=== PATIENT | male | born 1960 | race Two or more races ===

== ENCOUNTER 2019-08-21 06:12 | Emergency (ER) | payer BC ==
[2019-08-21 06:16] VITALS: BMI 31.3
[2019-08-21] MEDS ORDERED: ACETAMINOPHEN 1000 MG/100 ML VIAL (NON FORMULARY) IVPB ONE (07:47)
[2019-08-21] MEDS ORDERED: morphine CARPU-JECT 4 MG/1 ML DISP.SYRIN IVPUSH ONE (07:50)
--- NOTE | 2019-08-21 07:55 | PDOC ---
History of Present Illness - General Chief Complaint: Back Pain Stated Complaint: LOW BACK PAIN Time Seen by Provider: 08/21/19 07:36 - History of Present Illness Initial Comments: 08/21/19 07:51 59 M with h/o DM, HTN presenting to ED with lower back pain that started acutely last night. Pt states he was at rest when it began. Denies any falls/ trauma. Did not bend over or lift anything heavy. States that it is localized to his R lower back, non-radiating. Denies leg weakness/numbness. No incontinence or saddle anesthesia. Denies any h/o similar pain. Denies CP/SOB. Past History - Past Medical History Allergies/Adverse Reactions: Allergies Allergy/AdvReac Type Severity Reaction Status Date / Time No Known Allergies Allergy Verified 08/21/19 06:16 Home Medications: Ambulatory Orders Metoprolol Tartrate [Lopressor -] 25 mg PO DAILY 08/21/19 Rosuvastatin [Crestor -] 10 mg PO DAILY 08/21/19 COPD: No - Immunization History Immunization Up to Date: Yes - Psycho Social/Smoking Cessation Hx Smoking History: Unknown if ever smoked Have you smoked in the past 12 months: No Information on smoking cessation initiated: No Hx Alcohol Use: No Drug/Substance Use Hx: No Review of Systems - Review of Systems Comments:: 08/21/19 07:52 GENERAL/CONSTITUTIONAL: No fever or chills. No weakness. HEAD, EYES, EARS, NOSE AND THROAT: No change in vision. No ear pain or discharge. No sore throat. CARDIOVASCULAR: No chest pain, no shortness of breath, no loss of consciousness RESPIRATORY: No cough, wheezing, or hemoptysis. GASTROINTESTINAL: No nausea, vomiting, diarrhea or constipation. GENITOURINARY: No dysuria, frequency, or change in urination. MUSCULOSKELETAL: + back pain, No joint or muscle swelling or pain. No neck pain. SKIN: No rash NEUROLOGIC: No vertigo, no change in strength/sensation. ENDOCRINE: No increased thirst. No abnormal weight change. HEMATOLOGIC/LYMPHATIC: No anemia, easy bleeding, or history of blood clots. ALLERGIC/IMMUNOLOGIC: No hives or skin allergy. *Physical Exam - Vital Signs Last Vital Signs Temp Pulse Resp BP Pulse Ox 98.9 F 56 L 20 174/82 H 99 08/21/19 06:14 08/21/19 06:14 08/21/19 06:14 08/21/19 06:14 08/21/19 06:14 - Physical Exam 08/21/19 07:53 GENERAL: Awake, alert, and fully oriented, in no acute distress. HEAD: No signs of trauma EYES: PERRLA, EOMI, sclera anicteric, conjunctiva clear ENT: Auricles normal inspection, hearing grossly normal, nares patent, oropharynx clear without exudates. Moist mucosa NECK: Nontender, no stepoffs, Normal ROM, supple, no lymphadenopathy, JVD, or masses LUNGS: Breath sounds equal, clear to auscultation bilaterally. No wheezes, and no crackles HEART: Regular rate and rhythm, normal S1 and S2, no murmurs, rubs or gallops ABDOMEN: Soft, nontender, normoactive bowel sounds. No guarding, no rebound. No masses EXTREMITIES: Normal range of motion, no edema. No clubbing or cyanosis. No cords, erythema, or tenderness NEUROLOGICAL: Cranial nerves II through XII intact. 5/5 strength and sensation in all extremities, Normal speech, normal gait, normal cerebellar function SKIN: Warm, Dry, normal turgor, no rashes or lesions noted. BACK: + R paraspinal TTP, + straight leg raise ED Treatment Course - LABORATORY CBC & Chemistry Diagram: 08/21/19 08:05 08/21/19 08:05 - RADIOLOGY Radiology Studies Ordered: Category Date Time Status ABDOMEN & PELVIS CT WITH CONTR [CT] Stat CT Scan 08/21/19 07:49 Ordered CHEST CTA [CT] Stat CT Scan 08/21/19 07:[address] W/O CONTRAST [CT] Stat CT Scan 08/21/19 07:49 Ordered Medical Decision Making - Medical Decision Making 08/21/19 07:53 59 M with sudden onset atraumatic lower back pain. Suspect sciatic nerve vs radiculopathy. Will r/o aortic dissection vs renal colic as well. - Labs, UA - CTA C/A/P - Pain control 08/21/19 10:[address] shows L4-L5 disc bulge 08/21/19 11:03 Pt reassessed - pain now well controlled Pt ambulatory in ED with no difficulty Will DC with ortho f/u Pt is well appearing, with normal vitals. Clinically stable for DC at this time. I discussed the physical exam findings, ancillary test results and final diagnoses with the patient. I answered all of the patient's questions. The patient was satisfied with the care received and felt comfortable with the discharge plan and treatment plan. The patient agrees to follow up with the primary care physician within 24-72 hours. Discharge - Discharge Information Problems reviewed: Yes Clinical Impression/Diagnosis: L4-L5 disc bulge Disposition: HOME - Follow up/Referral Referrals: Ramakrishna De La Garza MD [Primary Care Provider] - Breezy Hendrickson MD [Staff Physician] - Juanjo Stringer MD [Staff Physician] - - Patient Discharge Instructions Patient Printed Discharge Instructions: DI for Low Back Pain Additional Instructions: Your CT scan today showed that you have bulging discs in your lower back. This is likely the cause of your pain. Follow up with an orthopedic surgeon for further evaluation and treatment. Call the numbers provided to make an appointment. If you experience worsening pain, weakness or numbness in either leg, difficulty controlling your bowel or bladder, or any other concerning symptoms, return to the ER immediately. No ER visit is complete without primary care follow up. Follow up with your primary doctor within 1 week to discuss your evaluation today. - Post Discharge Activity
[2019-08-21] MEDS ORDERED: morphine SULFATE 4 MG/ML VIAL ONE (08:08)
[2019-08-21] MEDS ORDERED: ACETAMINOPHEN INJECTION 100 ML IVPB ONE (08:08)
[2019-08-21 08:33] LABS: BASO % 0.7 % (0-2.0); EOS % 0.1 % (0-4.5); HEMATOCRIT 38.3 % (35.4-49); LYMPH % 27.9 % (8-40); MCH 30.9 pg (25.7-33.7); MCHC 33.9 g/dl (32.0-35.9); MEAN CELL VOLUME 91.1 fl (80-96); MEAN PLT VOLUME 9.7 fl (7.5-11.1); NEUT % 61.3 % (42.8-82.8); PLATELET COUNT 195 K/MM3 (134-434); RDW 13.1 % (11.9-15.9); WHITE BLOOD COUNT 8.4 K/mm3 (4.0-10.0)
[2019-08-21 08:53] LABS: ALBUMIN 3.6 g/dl (3.4-5.0); BILIRUBIN,TOTAL 0.4 mg/dL (0.2-1); BLOOD UREA NITROGEN 36.4 mg/dL (7-18); CREATININE 1.5 mg/dL (0.55-1.3); POTASSIUM 4.8 mmol/L (3.5-5.1); TOT PROT 7.5 g/dl (6.4-8.2)
--- NOTE | 2019-08-21 10:11 | EKG ---
Test Reason : Blood Pressure : / mmHG Vent. Rate : 054 BPM Atrial Rate : 054 BPM P-R Int : 172 ms QRS Dur : 082 ms QT Int : 442 ms P-R-T Axes : 041 020 048 degrees QTc Int : 419 ms SINUS BRADYCARDIA OTHERWISE NORMAL ECG NO PREVIOUS ECGS AVAILABLE Confirmed by JUSTO ELIZABETH MD ([id number]) on 08/21/2019 10:11:12 AM Referred By: Confirmed By:JUSTO ELIZABETH MD
[2019-08-21 11:15] VITALS: BP 125/68; PULSE 73; TEMP 98
== END 2019-08-21 11:22 | disposition home or self-care (01) ==
LOC: JER 06:12
PROC: 3E033NZ Introduction of Analgesics, Hypnotics, Sedatives into Peripheral Vein, Percutaneous Approach (ICD-10-PCS; principal; 2019-08-21)
DX: M51.86 Other intervertebral disc disorders, lumbar region (principal); E11.9 Type 2 diabetes mellitus without complications; I10 Essential (primary) hypertension
CPT/HCPCS: 36415; 71275-TC; 72131-TC; 74177-TC; 80053; 82550; 82553; 84484; 85025; 93005; 93010; 99283-25; J0131; Q9967

== ENCOUNTER 2019-09-02 13:54 | Emergency (ER) | payer BC ==
[2019-09-02 14:12] VITALS: TEMP 98.4; BMI 34.7
[2019-09-02] MEDS ORDERED: MECLIZINE HCL 25 MG TABLET (FP) PO ONE (14:18)
[2019-09-02] MEDS ORDERED: LACTATED RINGERS SOLUTION 1000 ML INFUS.BAG IV ONE (14:18)
--- NOTE | 2019-09-02 14:20 | PDOC ---
History of Present Illness - General Chief Complaint: Weakness Stated Complaint: WEAKNESS Time Seen by Provider: 09/02/19 13:58 History Source: Patient, Old Records Exam Limitations: No Limitations - History of Present Illness Initial Comments: HPI: 59 y/o male presenting to [facility] ER via EMS complaining of one hour of dizziness and numbness to the left side of his body. Symptoms started while he was smoking a cigarette and watching television. Reports a sensation of room spinning, but is unable to tell if the sensation changes with eye closure; worse when turning head to the left side. Also reported pain to right lateral side of his neck and a generalized head, which started last night - not maximum at onset. Denies visual disturbance, chest pain, shortness of breath, or abdominal pain. Denies h/o similar. Pt took two ASA prior to calling 911. ALS crew evaluated the pt on scene, then transferred care to [facility] crew for transport. BGL was reportedly 97. Pt follows with Dr. Coreas. Underwent two diagnostic PCI; one in 2002 at [facility] and one in 2011 at [place]. Both were reportedly normal. Social Hx: - Daily tobacco user - EtOH: Denies - Street Drugs: Denies Family Hx: - Brother and father suffered [place] under age 65 Medical Hx: - HTN - HLD - DM managed with diet - S/p R corneal transplant - Insomnia managed w/ Ambien, no recent change in dose Review of Systems: In addition to that documented in the HPI above, the additional ROS was obtained : Constitutional- Denies fevers or chills Head- Denies vision changes ENMT- Denies sore throat CV- Denies chest pain Resp- Denies SOB GI- Denies vomiting or diarrhea - Denies painful urination MSK- Denies recent trauma Skin- Denies new rashes Neuro- Denies weakness in arms and legs Endocrine- Denies polyuria Heme- Denies bleeding or bruising Physical Examination: Vital signs and nursing notes reviewed. Constitutional- Well-developed, well-nourished adult male in no acute distress or obvious discomfort. Found semi-fowlers on hospital bed. Answered all questions appropriately and completely. Head- Normocephalic. No obvious external signs of trauma. Eyes- L pupil 3mm and ERRL. 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 EOMI. No vertical or horizontal nystagmus. Sclerae white. Conjunctiva moist and not injected. Ears- R and L external auditory canals and tympanic membranes pearly oropeza. Hearing grossly intact. Nose- No nasal discharge. Throat- Oral cavity and pharynx normal. No inflammation, swelling, exudate, or lesions. Teeth and gingiva in good general condition. Neck- Supple, trachea is midline. No c-spine tenderness. Cardiovascular / Chest- Regular rate and regular rhythm. No murmur, rubs, clicks , or gallops. Peripheral pulses- radial pulses full. Respiratory- Breathing unlabored. Equal chest rise and fall. Clear to auscultation bilaterally. No stridor, no wheezing, no rhonchi. Gastrointestinal- abdomen is soft, non-tender, non-distended. Neuro- Alert and oriented x4. Moving all four extremities spontaneously. No facial asymmetry. No slurred speech. Uvula midline. No tongue deviation. No upper or lower extremity drift. Sensation to all four extremities intact, but pt reports decreased sensation to left side of face compared to right. Proximal and distal strength 5/5. 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 Plantar flexion and dorsiflexion 5/5.. Skin- Warm, dry, and intact. Psych- Affect- appropriate. Mood- normal. Speech was non-labored, non- pressured. MDM: 59 y/o male presenting with dizziness, left facial numbness, and parentheses to left arm and left leg. Afebrile. Vitals unremarkable for hypotension or tachycardia. Physical exam as described above. No focal neurologic deficits. Unclear etiology of symptoms. Will obtain Head CT, cardiac workup, and basic labs. Ordered Meclizine and IVFB for symptom relief. Ordered 162 of ASA to complete 324 ASA with his home administration. HCT unremarkable for acute pathology. Lab work unremarkable for significant derangement. Will order rapid MRI of brain to further evaluate for CVA given pt s personal and familial risk factors. Pt declined to stay for MRI. Spent >10 minutes over two periods discussing the risks and potential complications of leaving without the MRI, including but not limited to the worsening of symptoms, permanent disability, or . Pts daughter was present for these discussions. Both pt and daughter appeared alert and oriented with intact insight. Pt stated he would follow up with his primary care doctor. Encouraged the pt to do so in the next 24 hours. Provided copies of todays results. Tex Hyman M.D., PGY2 Emergency Medicine Resident NIH Stroke Scale - Last Known Well Date/Time & Onset Date Last Known Well: 09/02/19 Time Last Known Well: 13:30 - Initial Evaluation Level of consciousness: Alert Ask patient the month and their age: Answers both correctly Ask patient to open & close eyes; make fist and let go: Obeys both correctly Best gaze (horizontal eye movement): Normal Visual field testing: No visual field loss Facial paresis (Show teeth/raise eyebrows/close eyes tight): Normal symmetrical movement Motor Function: Left Arm: Normal Motor Function: Right Arm: Normal (extends arm 90 (or 45) degrees for 10 seconds without drift Motor Function: Left Leg: Normal (extends leg 30 degrees for 5 seconds without drift) Motor Function: Right Leg: Normal (extends leg 30 degrees for 5 seconds without drift) Limb Ataxia: No ataxia Sensory(Use pinprick test arms,legs,trunk,face/side to side): Normal Best language (Describe picture, name items, read sentences): No Aphasia Dysarthria (read several words): Normal articulation Extinction and Inattention: No abnormality - Total Score NIH Stroke Scale Score: 0 Past History - Past Medical History Allergies/Adverse Reactions: Allergies Allergy/AdvReac Type Severity Reaction Status Date / Time No Known Allergies Allergy Verified 09/02/19 14:00 Home Medications: Ambulatory Orders Lidocaine 5% Patch [Lidoderm -] 1 patch TP DAILY #7 patch 08/21/19 Metoprolol Tartrate [Lopressor -] 25 mg PO DAILY 08/21/19 Oxycodone HCl/Acetaminophen [Percocet 5-325 mg Tablet] 1 tab PO Q6H PRN #12 tablet MDD 4 tabs 08/21/19 Rosuvastatin [Crestor -] 10 mg PO DAILY 08/21/19 Lisinopril/Hydrochlorothiazide [Lisinopril-Hctz 20-25 mg Tab] 1 each PO DAILY Sertraline HCl [Zoloft] 100 mg PO ASDIR 09/02/19 Zolpidem Tartrate [Ambien] 10 mg PO HS 09/02/19 COPD: No - Immunization History Immunization Up to Date: Yes - Psycho Social/Smoking Cessation Hx Smoking History: Unknown if ever smoked Have you smoked in the past 12 months: No Hx Alcohol Use: No Drug/Substance Use Hx: No *Physical Exam - Vital Signs Last Vital Signs Temp Pulse Resp BP Pulse Ox 98.4 F 79 18 147/92 100 09/02/19 14:00 09/02/19 14:00 09/02/19 14:00 09/02/19 14:00 09/02/19 14:00 Vital Signs - Vital Signs #1 Time: 14:19 Blood Pressure: 134/88 BP Location: Right Arm Blood Pressure Position: Sitting Pulse Rate: 75 Respiratory Rate: 18 O2 Sat by Pulse Oximetry (%): 98 Oxygen Delivery Method: Room Air ED Treatment Course - LABORATORY CBC & Chemistry Diagram: 09/02/19 14:21 09/02/19 14:21 - ADDITIONAL ORDERS Additional order review: Laboratory Results 09/02/19 14:14 POC Glucometer 88 09/02/19 14:14 POC Glucometer 88 Discharge - Discharge Information Problems reviewed: Yes Clinical Impression/Diagnosis: Dizziness, Numbness and tingling of left arm and leg, Numbness and tingling of left side of face Condition: Unchanged/Unknown Disposition: AGAINST MEDICAL ADVICE - Admission No - Follow up/Referral Referrals: Ramakrishna De La Garza MD [Primary Care Provider] - - Patient Discharge Instructions Patient Printed Discharge Instructions: DI for Numbness/tingling, DI for Dizziness-Nonvertigo Additional Instructions: You were seen today for sudden onset of left sided body numbness and dizziness. Your initial blood work and CT scan were normal, but your person and familial medical history places you at risk of an ischemic stroke. A brain MRI was ordered to further evaluate for a stroke, but you declined to have this test performed. This decision was against medical advice. The risks and benefits of leaving this hospital before completing your medical workup were discussed. All of your results are attached to this packet. Please follow up with your regular doctor in the next 24 hours. Take this packet with you so the results can be reviewed by your doctor. Go to the nearest emergency department for new or worsening symptoms. Print Language: K[place]IL[place] - Post Discharge Activity
[2019-09-02] MEDS ORDERED: ASPIRIN 81 MG CHEWABLE TABLETS PO ONE (14:21)
[2019-09-02] MEDS ORDERED: MECLIZINE HCL 25 MG TABLET (FP) ONE (14:33)
[2019-09-02] MEDS ORDERED: ASPIRIN 81 MG CHEWABLE TABLETS ONE (14:33)
[2019-09-02 14:35] LABS: BASO % 0.6 % (0-2.0); EOS % 0.1 % (0-4.5); HEMATOCRIT 38.7 % (35.4-49); HEMOGLOBIN 13.1 GM/dL (11.7-16.9); MCH 30.8 pg (25.7-33.7); MCHC 33.8 g/dl (32.0-35.9); MEAN CELL VOLUME 90.9 fl (80-96); MEAN PLT VOLUME 10.2 fl (7.5-11.1); MONO % 9.1 % (3.8-10.2); NEUT % 56.2 % (42.8-82.8); PLATELET COUNT 209 K/MM3 (134-434); RBC 4.26 M/mm3 (4.00-5.60); RDW 13.3 % (11.9-15.9); WHITE BLOOD COUNT 8.5 K/mm3 (4.0-10.0)
--- NOTE | 2019-09-02 14:44 | PDOC ---
Attending Attestation - Resident Resident Name: Tex Hyman - ED Attending Attestation I have performed the following: I have examined & evaluated the patient, The case was reviewed & discussed with the resident, I agree w/resident's findings & plan - HPI HPI: 09/02/19 14:42 59 y/o male with h/o DM, HTN, CAD (nondiagnostic catheterizations), presenting to [facility] ER via EMS complaining of one hour of dizziness and numbness to the left side of his body. Symptoms started while he was smoking a cigarette and watching television. Reports a sensation of room spinning, but is unable to tell if the sensation changes with eye closure; worse when turning head to the left side. Also reported pain to right lateral side of his neck and a generalized head, which started last night - not maximum at onset. Denies visual disturbance, chest pain, shortness of breath, or abdominal pain. Denies h /o similar. Pt took two ASA prior to calling 911. no trauma. also with neck pain, but no limitations with movement or trauma. BGL was reportedly 97 via EMS. Pt follows with Dr. Coreas. Underwent two diagnostic PCI; one in 2002 at [facility] and one in 2011 at [place]. Both were reportedly normal. 09/02/19 15:02 09/02/19 15:51 - Physicial Exam PE: 09/02/19 14:43 Agree with the resident's HPI and PE as documented in the electronic medical record. NAD, well appearing, EOMI, PERRL, nl conjunctiva, anicteric; neck supple. lungs clear, RRR, abdomen soft nontender. no rebound, guarding. Back nontender. SKAGGS x4, no focal neuro deficits. No peripheral edema. normal color for ethnicity , WWP. Alert, oriented to person time and place. No carotid bruit, CN II-XII grossly intact. Strength prox and distally 5/5 throughout. Sensation grossly intact to light touch. SKAGGS x4. No cerebellar signs, no dysmetria, bilateral finger to nose and heel to lara equal and symmetric. Speech clear. 09/02/19 15:03 - Medical Decision Making 09/02/19 14:43 Vital Signs Temp Pulse Resp BP Pulse Ox 98.4 F 75 18 134/88 98 09/02/19 14:00 09/02/19 14:20 09/02/19 14:20 09/02/19 14:20 09/02/19 14:20 ddx vertigo, peripheral vs central. cerumen impaction, CVA, dissection, aneurysm , ACS, arrhythmia NIHSS zero, no focal deficits. GCS 15, speech clear, no cerebellar signs. 09/02/19 16:12 Laboratory results are within normal limits, troponin is negative x1 unlikely be cardiac/ACS. CT head to evaluate for head bleed/intracranial abnormality given sensory symptoms isolated to the left side. MRI hyperacute series will be done to evaluate for early ischemic CVA given his risk factors and pure sensory symptoms. prelim head CT neg for ICH/head bleed/CVA. labs and lytes wnl, trop neg, reassuring. EKG as documented, nonischemic 09/02/19 17:51 The patient has requested to leave the ED against medical advice. The patient reason(s) for leaving include, but are not limited to, the following: declines waiting for advanced imaging, as pt is pending rapid sequence MRI Discussion at the bedside with patient. Pt has capacity to make medical decisions. Discussed indications for treatment and admission, management plan, risks and benefits. I believe this patient is of sound mind and competent to refuse medical care. The patient is responding and asking questions appropriately. The patient is oriented to person, place and time. There is no evidence of psychosis, delusions/hallucinations, suicidal/homicidal ideation, altered mental status or intoxication. The patient demonstrates a normal mental capacity to make decisions regarding their healthcare. The patient is clinically sober and does not appear to be under the influence of any illicit drugs at this time. Patient understands the nature of the condition and treatment plan, advised of the potential risks, in layman terms, of leaving AMA which include, but are not limited to: cardiopulmonary arrest, severe infection, dehydration, bleeding, multiorgan failure including liver, kidney, brain, lung and heart, myocardial infarction, arrhythmia, stroke, head bleed, seizure, carotid stenosis/aneurysm/dissection, respiratory failure, delay in diagnosis and management, loss of current lifestyle, loss of functional status, coma, severe disability and . Alternatives have been offered - the patient remains steadfast in their wish to leave. The patient has been advised that should they change their mind they are welcome to return to this hospital, or any other, at any time - call 911 immediately if severe life threatening symptoms or concerns occur. The patient understands that in no way does an AMA discharge mean that I do not want them to have the best medical care available. To this end, I have provided appropriate prescriptions, referrals, and discharge instructions. Patient will be treated with close followup with primary doctor and/or specialists as provided/discussed for clinical reevaluation. Patient verbalized understanding of information provided, questions answered. The patient did sign AMA paperwork. The above discussion was witnessed by another member of staff, MONE Aparicio 09/02/19 17:51 09/03/19 12:07 09/03/19 12:07 Heart Score/ECG Review #1 ECG reviewed & interpreted by me at: 15:00 General ECG Interpretation: Sinus Rhythm, Normal Rate, Normal Intervals Compared to previous ECG there are: No significant change 09/02/19 15:04 EKG normal sinus rhythm 70 bpm, no interval abnormalities, narrow QRS, ST and T wave segments and morphology normal. Nonspecific T wave abnormality in III only , no contiguous lead changes.
[2019-09-02 15:16] LABS: ALBUMIN 3.8 g/dl (3.4-5.0); BILIRUBIN,TOTAL 0.4 mg/dL (0.2-1); BLOOD UREA NITROGEN 26.8 mg/dL (7-18); CALCIUM 8.9 mg/dL (8.5-10.1); CREATININE 1.3 mg/dL (0.55-1.3); MAGNESIUM 2.1 mg/dL (1.8-2.4); PHOSPHOROUS 3.1 mg/dL (2.5-4.9); POTASSIUM 4.5 mmol/L (3.5-5.1); TOT PROT 7.8 g/dl (6.4-8.2)
--- NOTE | 2019-09-03 13:38 | EKG ---
Test Reason : Blood Pressure : / mmHG Vent. Rate : 070 BPM Atrial Rate : 070 BPM P-R Int : 156 ms QRS Dur : 086 ms QT Int : 394 ms P-R-T Axes : 035 -03 029 degrees QTc Int : 425 ms NORMAL SINUS RHYTHM NORMAL ECG WHEN COMPARED WITH ECG OF 21-AUG-2019 08:13, NO SIGNIFICANT CHANGE WAS FOUND Confirmed by MD SABINO, CARLA ([id number]) on 09/03/2019 1:37:36 PM Referred By: Confirmed By:CARLA GALLO MD
[2019-09-03 16:39] VITALS: BP 134/88; PULSE 75
== END 2019-09-02 18:09 | disposition left against medical advice (07) ==
LOC: JER 13:54
DX: R42 Dizziness and giddiness (principal); R20.0 Anesthesia of skin; I10 Essential (primary) hypertension; E78.5 Hyperlipidemia, unspecified; E11.9 Type 2 diabetes mellitus without complications; G47.00 Insomnia, unspecified; Z94.7 Corneal transplant status
CPT/HCPCS: 36415; 70450-TC; 80053; 82962; 83735; 84100; 84484; 85025; 93005; 93010; 99284-25

== ENCOUNTER 2022-03-24 21:09 | Emergency (ER) | payer BC ==
[2022-03-24 21:25] VITALS: BMI 29.0
[2022-03-24] MEDS ORDERED: ACETAMINOPHEN 1000 MG/100 ML BAG IVPB ONE (21:38)
[2022-03-24] MEDS ORDERED: SODIUM CHLORIDE 1,000 ML IV STA (22:16)
[2022-03-24] MEDS ORDERED: IBUPROFEN 400 MG TABLET (FP) PO ONE ×2 (22:19→22:24)
[2022-03-24 23:31] LABS: BASO % 0.3 % (0-2.0); HEMATOCRIT 37.8 % (35.4-49); HEMOGLOBIN 12.5 GM/dL (11.7-16.9); LYMPH % 13.2 % (8-40); MCH 29.6 pg (25.7-33.7); MCHC 33.1 g/dl (32.0-35.9); MEAN CELL VOLUME 89.2 fl (80-96); MEAN PLT VOLUME 9.2 fl (7.5-11.1); MONO % 11.6 % (3.8-10.2); NEUT % 74.9 % (42.8-82.8); PLATELET COUNT 184 10^3/uL (134-434); RBC 4.23 M/mm3 (4.00-5.60); RDW 14.2 % (11.9-15.9); VENOUS BASE EXCESS -2.2 mmol/L (-2-2); VENOUS O2 SATURATION 94.4 % (70-80); VENOUS PCO2 35.5 mmHg (38-52); VENOUS PH 7.409 (7.310-7.410); WHITE BLOOD COUNT 6.5 K/mm3 (4.0-10.0)
[2022-03-24 23:35] LABS: EPI CELLS 1 /uL (0-25.1); HYALINE CASTS 0 /uL (0-3.1); URINE APPEARANCE CLEAR; URINE BACTERIA 95 /uL (0-1359); URINE BILIRUBIN NEGATIVE (NEGATIVE); URINE COLOR YELLOW; URINE GLUCOSE (UA) NEGATIVE (NEGATIVE); URINE KETONE NEGATIVE (NEGATIVE); URINE LEUK ESTERASE NEGATIVE (NEGATIVE); URINE NITRITE NEGATIVE (NEGATIVE); URINE PROTEIN 2+ (NEGATIVE); URINE RBC 31 /uL (0-23.9); URINE UROBILINOGEN 0.2 mg/dL (0.2-1.0); URINE WBC 5 /uL (0-25.8)
[2022-03-24 23:40] LABS: INR 1.14 (0.83-1.09); PROTHROMBIN TIME (PATIENT) 13.1 SEC (9.7-13.0)
[2022-03-24 23:43] LABS: ACTIVATED PTT 34.3 SECONDS (25.2-36.5)
[2022-03-25 00:02] LABS: CHLORIDE 104 mmol/L (98-107); SODIUM 136 mmol/L (136-145)
[2022-03-25 00:04] LABS: CALCIUM 8.8 mg/dL (8.5-10.1)
[2022-03-25 00:05] LABS: ANION GAP 9 MMOL/L (8-16); BLOOD UREA NITROGEN 22.2 mg/dL (7-18); CO2 23 mmol/L (21-32); GLUCOSE,RANDOM 109 mg/dL (74-106)
[2022-03-25 00:08] LABS: CREATININE 1.6 mg/dL (0.55-1.3)
[2022-03-25 00:09] LABS: SGOT/AST 27 U/L (15-37); SGPT/ALT 41 U/L (13-61)
[2022-03-25 00:10] LABS: BILIRUBIN,TOTAL 0.3 mg/dL (0.2-1)
[2022-03-25 00:11] LABS: ALK PHOS 72 U/L (45-117)
[2022-03-25 01:29] VITALS: BP 117/72; PULSE 76; TEMP 98.9
== END 2022-03-25 01:30 | disposition home or self-care (01) ==
LOC: JER 21:09
PROC: 3E0337Z Introduction of Electrolytic and Water Balance Substance into Peripheral Vein, Percutaneous Approach (ICD-10-PCS; principal; 2022-03-24)
DX: U07.1 COVID-19 (principal)
CPT/HCPCS: 0241U-QW; 36415; 71045-TC-FY; 74176-TC; 80053; 80307; 81003; 82553; 82803; 83605; 84484; 85025; 85610; 85730; 86850; 86900; 86901; 87040; 87086; 93005; 93010; 99285-25

== ENCOUNTER 2022-05-13 12:13 | Emergency (ER) | payer BC ==
[2022-05-13 12:27] VITALS: BP 117/79; PULSE 80; RESP 18; TEMP 98.1; BMI 29.0
== END 2022-05-13 13:24 | disposition home or self-care (01) ==
LOC: JERFT 12:13
DX: R05.1 Acute cough (principal)
CPT/HCPCS: 71046-TC-FY; 99283-25